=== PATIENT | female | born 1990 | race Caucasian/White ===

== ENCOUNTER 2017-03-12 11:12 | Outpatient (CLI) | payer BC, MEDICAID ==
[~2017-03-12] VITALS: Ht 170.2 cm; Wt 94.5 kg
[~2017-03-12 11:12] MED LIST: HYDR-3240 PO; IBUP-1222 PO; METOCLOPRAM PO; OXYC-302 PO; PREN1TAB98 PO
[2017-03-12 11:38] VITALS: BP 101/67
== END 2017-03-12 12:26 | disposition home or self-care (01) ==
LOC: LDOP 11:12
PROVIDERS: ATTEND Obstetrics & Gynecology
DX: O30.033 Twin pregnancy, monochorionic/diamniotic, third trimester (principal); O26.853 Spotting complicating pregnancy, third trimester; O26.893 Other specified pregnancy related conditions, third trimester; R10.9 Unspecified abdominal pain; Z3A.30 30 weeks gestation of pregnancy
CPT/HCPCS: 59025; 81001; 87086; 99211; G0463

== ENCOUNTER 2017-03-28 13:51 | Outpatient (CLI) | payer BC | END 2017-03-28 15:30 | disposition home or self-care (01) | LOC: LDOP 13:51 | PROVIDERS: ATTEND Obstetrics & Gynecology | DX: O30.003 Twin pregnancy, unspecified number of placenta and unspecified number of amniotic sacs, third trimester (principal); Z3A.33 33 weeks gestation of pregnancy | CPT/HCPCS: 59025; 99211; G0463 ==